=== PATIENT | male | born 1965 | race Caucasian/White ===

== ENCOUNTER 2022-09-30 14:53 | Emergency (ER) | payer OTHER, SELFPAY ==
--- NOTE | 2022-09-30 14:55 | ECG_ITS ---
Test Reason : elctricution Blood Pressure : / mmHG Vent. Rate : 057 BPM Atrial Rate : 057 BPM P-R Int : 188 ms QRS Dur : 090 ms QT Int : 440 ms P-R-T Axes : 043 028 030 degrees QTc Int : 428 ms Sinus bradycardia Otherwise normal ECG No previous ECGs available Referred By: Generic ED Physician Electronically Signed By:CJ AHMADI MD
--- NOTE | 2022-09-30 15:22 | ED_ITS ---
HPI - General Adult General Chief complaint: General Medical <CHAD Grove - Last Filed: 09/30/22 15:25> Stated complaint: electrication <CHAD Grove - Last Filed: 09/30/22 15:25> Time Seen by Provider: 09/30/22 20:46 <CHAD Grove - Last Filed: 09/30/22 15:25> Source: patient <Kelley Love NP - Last Filed: 10/01/22 00:54> Mode of arrival: ambulatory <Kelley Love NP - Last Filed: 10/01/22 00:54> Limitations: no limitations <CHELE Carvalho Last Filed: 10/01/22 00:54> History of Present Illness HPI narrative: This is a 56-year-old male with history of hypertension, BPH, hyperlipidemia who presents with complaints of logical shock which occurred at 14:00 while working. 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 He was flipping a meter seal with his left hand when he touched the live wire. He believes it was over 1000 voltage. He felt immediate shock in his left index finger and felt up to his forearm. He feels well now. He denies any pain, numbness, tingling of extremities. No chest pain, palpitations, shortness of breath. <Kelley Love NP - Last Filed: 10/01/22 00:54> Related Data Allergies/adverse reactions: Allergies Allergy/AdvReac Type Severity Reaction Status Date / Time No Known Allergies Allergy Unverified 05/08/20 14:44 <CHAD Grove - Last Filed: 09/30/22 15:25> Review of Systems Review of Systems: Yes all other systems are reviewed and are negative <CHELE Carvalho Last Filed: 10/01/22 00:54> Constitutional: Constitutional: Reports no additional constitutional complaints, Denies body ache(s), Denies chills, Denies fever(s), Denies head ache(s) and Denies weakness <CHELE Carvalho Last Filed: 10/01/22 00:54> Eyes: Eyes: Reports no additional eye complaints and Denies change in vision <Kelley Love HEALTHCARE APPLICATIONS ANALYST - Last Filed: 10/01/22 00:54> ENT: Reports system reviewed and no additional complaints, except as documented, Denies dizziness, Denies headache(s), Denies nasal congestion, Denies nasal discharge and Denies neck pain <Kelley Love HEALTHCARE APPLICATIONS ANALYST - Last Filed: 10/01/22 00:54> Cardiovascular: Cardiovascular: Reports no additional cardiovascular complaints, Denies chest pain, Denies leg edema and Denies dyspnea <Kelley Love HEALTHCARE APPLICATIONS ANALYST - Last Filed: 10/01/22 00:54> Respiratory: Respiratory: Reports no additional respiratory complaints, Denies cough and Denies dyspnea <Kelley Love HEALTHCARE APPLICATIONS ANALYST - Last Filed: 10/01/22 00:54> Gastrointestinal: Gastrointestinal: Reports no additional gastrointestinal complaints, Denies abdominal pain, Denies diarrhea, Denies nausea and Denies vomiting <Kelley Love HEALTHCARE APPLICATIONS ANALYST - Last Filed: 10/01/22 00:54> Genitourinary: Genitourinary: Denies urinary incontinence <Kelley Love HEALTHCARE APPLICATIONS ANALYST - Last Filed: 10/01/22 00:54> Musculoskeletal: Musculoskeletal: Reports no additional musculoskeletal complaints, Denies back pain, Denies arthralgias, Denies joint swelling, Denies neck pain, Denies numbness and Denies tingling <Kelley Love HEALTHCARE APPLICATIONS ANALYST - Last Filed: 10/01/22 00:54> Integumentary/Breasts: Skin/Breast: Reports system reviewed and no additional complaints, except as docu and Denies rash <Kelley Love HEALTHCARE APPLICATIONS ANALYST - Last Filed: 10/01/22 00:54> Neurologic: Reports system reviewed and no additional complaints, except as documented, Denies dizziness, Denies headache(s), Denies numbness, Denies tingling and Denies weakness <Kelley Love HEALTHCARE APPLICATIONS ANALYST - Last Filed: 10/01/22 00:54> PMFSH Past Medical History Attestation statement: The following information was validated with the patient. <Kelley pinto NP - Last Filed: 10/01/22 00:54> Source: old records reviewed and nursing notes reviewed <Kelley Love NP - Last Filed: 10/01/22 00:54> Social History Social History: Social History Advance Directives: No Advance Directives Information Provided: No <CHAD Grove - Last Filed: 09/30/22 15:25> Physical Exam ED Vital Signs: Vital Signs - 24 hr 09/30/22 15:23 09/30/22 20:32 09/30/22 21:33 Temperature 97.5 F 97.8 F 97.7 F Pulse Rate 60 52 50 Respiratory Rate 18 18 16 Blood Pressure 173/76 H 164/58 H 171/84 H Pulse Oximetry 97 98 97 Oxygen Delivery Method Room Air Room Air Room Air BMI result Body Mass Index 40.8 <CHAD Grove Last Filed: 09/30/22 15:25> Vital Signs - 24 hr 09/30/22 15:23 09/30/22 20:32 09/30/22 21:33 Temperature 97.5 F 97.8 F 97.7 F Pulse Rate 60 52 50 Respiratory Rate 18 18 16 Blood Pressure 173/76 H 164/58 H 171/84 H Pulse Oximetry 97 98 97 Oxygen Delivery Method Room Air Room Air Room Air BMI result Body Mass Index 40.8 <Kelley Love NP - Last Filed: 10/01/22 00:54> Const General: cooperative, healthy appearing and comfortable <Kelley Love NP - Last Filed: 10/01/22 00:54> Orientation/consciousness: patient oriented x3 <Kelley Love NP - Last Filed: 10/01/22 00:54> Limitations: no limitations <Kelley Love NP - Last Filed: 10/01/22 00:54> HENMT Head: Yes normal to inspection <Kelley Love NP - Last Filed: 10/01/22 00:54> Ears: hearing grossly normal bilaterally <Kelley Love NP - Last Filed: 10/01/22 00:54> Eyes General: appearance normal, both eyes and all related structures <CHELE Carvalho Last Filed: 10/01/22 00:54> Pupils: Equal, round and reactive pupils present <Kelley Love HEALTHCARE APPLICATIONS ANALYST - Last Filed: 10/01/22 00:54> Neck Neck: Yes normal visual inspection, Yes full ROM and Yes no lymphadenopathy <Kelley Love HEALTHCARE APPLICATIONS ANALYST - Last Filed: 10/01/22 00:54> Chest Chest palpation & inspection: normal inspection of the chest <Kelley Love HEALTHCARE APPLICATIONS ANALYST - Last Filed: 10/01/22 00:54> Resp Effort & Inspection: normal respiratory effort <Kelley Love HEALTHCARE APPLICATIONS ANALYST - Last Filed: 10/01/22 00:5 4> Auscultation: clear to auscultation bilaterally <Kelley Love HEALTHCARE APPLICATIONS ANALYST - Last Filed: 10/01/22 00:54> Cardio Rate: regular rate <Kelley Love HEALTHCARE APPLICATIONS ANALYST - Last Filed: 10/01/22 00:54> Rhythm: regular rhythm <Kelley Love HEALTHCARE APPLICATIONS ANALYST - Last Filed: 10/01/22 00:54> Peripheral pulses: Peripheral pulses 2+ throughout <Kelley Love HEALTHCARE APPLICATIONS ANALYST - Last Filed: 10/01/22 00:54> GI Inspection: Yes normal to inspection <Kelley Love HEALTHCARE APPLICATIONS ANALYST - Last Filed: 10/01/22 00:54> Palpation (GI): Soft to palpation and nontender <Kelley Love HEALTHCARE APPLICATIONS ANALYST - Last Filed: 10/01/22 00:54> General: Yes no CVA tenderness <Kelley Love HEALTHCARE APPLICATIONS ANALYST - Last Filed: 10/01/22 00:54> Back/Spine/Pelvis Back: no CVA tenderness <Kelley Love HEALTHCARE APPLICATIONS ANALYST - Last Filed: 10/01/22 00:54> Thoracic/Lumbar Spine: thoracic and lumbar spine normal to inspection <Kelley Love HEALTHCARE APPLICATIONS ANALYST - Last Filed: 10/01/22 00:54> Skin General skin exam: no rashes or lesions noted <Kelley Love HEALTHCARE APPLICATIONS ANALYST - Last Filed: 10/01/22 00:54> Neuro General: patient oriented x3 and moves all extremities <Kelley Love NP - Last Filed: 10/01/22 00:54> Cranial nerves: Yes CN's II-XII intact bilaterally, Yes Equal, round and reactive pupils present, Yes Bilaterally intact EOM present, Yes Nystagmus not present and Yes Normal facial strength present <Kelley Love NP - Last Filed: 10/01/22 00:54> Cognition (Neuro): normal cognition <Kelley Love NP - Last Filed: 10/01/22 00:54> Gait exam (Neuro): Normal gait present <Kelley Love NP - Last Filed: 10/01/22 00:54> Motor exam (neuro): 5/5 motor strength present throughout <Kelley Love NP - Last Filed: 10/01/22 00:54> Extrem Other: Left index finger normal in appearance <Kelley Love NP - Last Filed: 10/01/22 00:54> General: Yes normal to inspection, Yes no pedal edema and Yes no calf tenderness <Kelley Love NP - Last Filed: 10/01/22 00:54> Course Course Course Narrative: This is an RME: Additional HPI, ROS, PE not included below will be deferred to primary provider. 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 Patient denies chest pain, shortness of breath, tachycardia, headache, vision changes, dizziness, numbness and tingling. Physical examination benign. Plan at this time basic labs, CPK, troponin, EKG. <CHAD Grove - Last Filed: 09/30/22 15:25> Reevaluation(s) Reevaluation #1: Labs unremarkable. Patient monitored for greater than 5 hours with no events. Patient has no symptoms. Recommend patient follow-up with occupational health. Reviewed worrisome signs and symptoms of when to return to the emergency room. Comfortable plan for discharge home. <Kelley Lvoe NP - Last Filed: 10/01/22 00:54> Medical Decision Making Medical Decision Making MDM Narrative: 56-year-old male here after suffering electrical shock to the left upper extremity at 14:00 today with no complaints. No focal findings on exam. No burn. Normal neuro exam. Will obtain labs, EKG <Kelley Love NP - Last Filed: 10/01/22 00:54> Differential Diagnosis Differential Diagnoses: The differential diagnosis associated with the presentation includes <Kelley Love NP - Last Filed: 10/01/22 00:54> Burn <Kelley Love NP - Last Filed: 10/01/22 00:54> Lab Data [facility] Lab Attestation statement: I reviewed the patient's lab results. <Kelley Love NP - Last Filed: 10/01/22 00:54> Result Diagrams: 09/30/22 15:18 09/30/22 15:18 <CHAD Grove - Last Filed: 09/30/22 15:25> Labs: Lab Results 09/30/22 09/30/22 09/30/22 Range/Units 15:18 15:18 15:18 WBC 4.8 (4.8-10.8) X10*3/uL RBC 5.36 (4.60-5.80) X10*6/uL Hgb 14.8 (14.0-18.0) g/dl Hct 44.3 (42.0-52.0) % MCV 82.6 (80.0-98.0) fL MCH 27.6 (27.0-33.0) pg MCHC 33.4 (31.0-36.0) g/dl RDW 12.9 (11.0-16.0) % Plt Count 267 (160-400) X10*3/uL MPV 10.0 (9.4-12.4) fL Immature Gran % (Auto) 0.2 (0.0-0.4) % Neut % (Auto) 45.8 (45-73) % Lymph % (Auto) 42.8 H (20-40) % [place] % (Auto) 9.1 (2-11) % Eos % (Auto) 1.5 (0-4) % Baso % (Auto) 0.6 (0-2) % Lymph # (Auto) 2.1 (1.2-4.9) X10*3/uL [place] # (Auto) 0.4 (0.1-1.2) X10*3/uL Eos # (Auto) 0.1 (0.0-0.4) X10*3/uL Baso # (Auto) 0.0 (0.0-0.2) X10*3/uL Abs Immat Gran (auto) 0.01 (0.00-0.03) X10*3/uL Absolute Neuts (auto) 2.2 (2.0-8.3) x10*3/uL Absolute Nucleated RBC 0.000 (0.0-0.012) X10*3/uL Nucleated RBC % (auto) 0.0 (0.0-0.2) /100WBC Sodium 141 (135-145) mmol/L Potassium 3.9 (3.3-5.1) mmol/L Chloride 107 (96-108) mmol/L Carbon Dioxide 25 (22-29) mmol/L Anion Gap 13 (12-20) BUN 17 H (9-16) mg/dL Creatinine 0.86 (0.5-1.4) mg/dL Estim Creat Clear Calc 137.7 Estimated GFR > 60 Random Glucose 148 H (60-115) mg/dL Calcium 9.1 (8.4-10.2) mg/dL Total Creatine Kinase 199 H (38-174) U/L Troponin I High Sens < 3.5 (<3.5-35.0) ng/L 09/30/22 Range/Units 21:41 WBC (4.8-10.8) X10*3/uL RBC (4.60-5.80) X10*6/uL Hgb (14.0-18.0) g/dl Hct (42.0-52.0) % MCV (80.0-98.0) fL MCH (27.0-33.0) pg MCHC (31.0-36.0) g/dl RDW (11.0-16.0) % Plt Count (160-400) X10*3/uL MPV (9.4-12.4) fL Immature Gran % (Auto) (0.0-0.4) % Neut % (Auto) (45-73) % Lymph % (Auto) (20-40) % [place] % (Auto) (2-11) % Eos % (Auto) (0-4) % Baso % (Auto) (0-2) % Lymph # (Auto) (1.2-4.9) X10*3/uL [place] # (Auto) (0.1-1.2) X10*3/uL Eos # (Auto) (0.0-0.4) X10*3/uL Baso # (Auto) (0.0-0.2) X10*3/uL Abs Immat Gran (auto) (0.00-0.03) X10*3/uL Absolute Neuts (auto) (2.0-8.3) x10*3/uL Absolute Nucleated RBC (0.0-0.012) X10*3/uL Nucleated RBC % (auto) (0.0-0.2) /100WBC Sodium 141 (135-145) mmol/L Potassium 4.0 (3.3-5.1) mmol/L Chloride 107 (96-108) mmol/L Carbon Dioxide 23 (22-29) mmol/L Anion Gap 15 (12-20) BUN 17 H (9-16) mg/dL Creatinine 0.76 (0.5-1.4) mg/dL Estim Creat Clear Calc 155.8 Estimated GFR > 60 Random Glucose 112 (60-115) mg/dL Calcium 9.2 (8.4-10.2) mg/dL Total Creatine Kinase 152 (38-174) U/L Troponin I High Sens (<3.5-35.0) ng/L <CHAD Grove - Last Filed: 09/30/22 15:25> Lab Results 09/30/22 09/30/22 09/30/22 Range/Units 15:18 15:18 15:18 WBC 4.8 (4.8-10.8) X10*3/uL RBC 5.36 (4.60-5.80) X10*6/uL Hgb 14.8 (14.0-18.0) g/dl Hct 44.3 (42.0-52.0) % MCV 82.6 (80.0-98.0) fL MCH 27.6 (27.0-33.0) pg MCHC 33.4 (31.0-36.0) g/dl RDW 12.9 (11.0-16.0) % Plt Count 267 (160-400) X10*3/uL MPV 10.0 (9.4-12.4) fL Immature Gran % (Auto) 0.2 (0.0-0.4) % Neut % (Auto) 45.8 (45-73) % Lymph % (Auto) 42.8 H (20-40) % [place] % (Auto) 9.1 (2-11) % Eos % (Auto) 1.5 (0-4) % Baso % (Auto) 0.6 (0-2) % Lymph # (Auto) 2.1 (1.2-4.9) X10*3/uL [place] # (Auto) 0.4 (0.1-1.2) X10*3/uL Eos # (Auto) 0.1 (0.0-0.4) X10*3/uL Baso # (Auto) 0.0 (0.0-0.2) X10*3/uL Abs Immat Gran (auto) 0.01 (0.00-0.03) X10*3/uL Absolute Neuts (auto) 2.2 (2.0-8.3) x10*3/uL Absolute Nucleated RBC 0.000 (0.0-0.012) X10*3/uL Nucleated RBC % (auto) 0.0 (0.0-0.2) /100WBC Sodium 141 (135-145) mmol/L Potassium 3.9 (3.3-5.1) mmol/L Chloride 107 (96-108) mmol/L Carbon Dioxide 25 (22-29) mmol/L Anion Gap 13 (12-20) BUN 17 H (9-16) mg/dL Creatinine 0.86 (0.5-1.4) mg/dL Estim Creat Clear Calc 137.7 Estimated GFR > 60 Random Glucose 148 H (60-115) mg/dL Calcium 9.1 (8.4-10.2) mg/dL Total Creatine Kinase 199 H (38-174) U/L Troponin I High Sens < 3.5 (<3.5-35.0) ng/L 09/30/22 Range/Units 21:41 WBC (4.8-10.8) X10*3/uL RBC (4.60-5.80) X10*6/uL Hgb (14.0-18.0) g/dl Hct (42.0-52.0) % MCV (80.0-98.0) fL MCH (27.0-33.0) pg MCHC (31.0-36.0) g/dl RDW (11.0-16.0) % Plt Count (160-400) X10*3/uL MPV (9.4-12.4) fL Immature Gran % (Auto) (0.0-0.4) % Neut % (Auto) (45-73) % Lymph % (Auto) (20-40) % [place] % (Auto) (2-11) % Eos % (Auto) (0-4) % Baso % (Auto) (0-2) % Lymph # (Auto) (1.2-4.9) X10*3/uL [place] # (Auto) (0.1-1.2) X10*3/uL Eos # (Auto) (0.0-0.4) X10*3/uL Baso # (Auto) (0.0-0.2) X10*3/uL Abs Immat Gran (auto) (0.00-0.03) X10*3/uL Absolute Neuts (auto) (2.0-8.3) x10*3/uL Absolute Nucleated RBC (0.0-0.012) X10*3/uL Nucleated RBC % (auto) (0.0-0.2) /100WBC Sodium 141 (135-145) mmol/L Potassium 4.0 (3.3-5.1) mmol/L Chloride 107 (96-108) mmol/L Carbon Dioxide 23 (22-29) mmol/L Anion Gap 15 (12-20) BUN 17 H (9-16) mg/dL Creatinine 0.76 (0.5-1.4) mg/dL Estim Creat Clear Calc 155.8 Estimated GFR > 60 Random Glucose 112 (60-115) mg/dL Calcium 9.2 (8.4-10.2) mg/dL Total Creatine Kinase 152 (38-174) U/L Troponin I High Sens (<3.5-35.0) ng/L <Kelley Love NP - Last Filed: 10/01/22 00:54> Independent Interpretation I performed an independent interpretation of an: EKG <Kelley Love NP - Last Filed: 10/01/22 00:54> Interpretation: Sinus bradycardia with a rate of 57, normal OR, normal QRS, normal QT <Kelley Love NP - Last Filed: 10/01/22 00:54> Discharge Plan Discharge Clinical Impression: Electric shock <CHAD Grove - Last Filed: 09/30/22 15:25> Patient Disposition: Home, Self-Care <CHAD Grove - Last Filed: 09/30/22 15:25> Instructions: Electrical Heath in Adults (ED) <CHAD Grove - Last Filed: 09/30/22 15:25> Additional Instructions: Follow-up with work connection [phone] Return for worsening symptoms <CHAD Grove - Last Filed: 09/30/22 15:25> Referrals: Krystal Mcintosh NP [Primary Care Provider] - 1 week <CHAD Grove - Last Filed: 09/30/22 15:25> Interventions: ED Discharge Assessment Last Done: 09/30/22 22:41 <CHAD Grove - Last Filed: 09/30/22 15:25> Discharge Date/Time: 09/30/22 22:42 <CHAD Grove - Last Filed: 09/30/22 15:25>
[2022-09-30 15:23] VITALS: BP 173/76; PULSE 60; RESP 18; TEMP 36.4; O2SAT 97; BMI 40.8
[2022-09-30 15:23] LABS: MANUAL DIFF FLAG NO
[2022-09-30 15:27] LABS: Basophils Percent Auto 0.6 % (0-2); Eosinophils Absolute Auto 0.1 X10*3/uL (0.0-0.4); Eosinophils Percent Auto 1.5 % (0-4); Hematocrit 44.3 % (42.0-52.0); Hemoglobin 14.8 g/dl (14.0-18.0); Imm Gran Abs Auto 0.01 X10*3/uL (0.00-0.03); Imm Gran Pct Auto 0.2 % (0.0-0.4); Lymphocytes Absolute Auto 2.1 X10*3/uL (1.2-4.9); Lymphocytes Percent Auto 42.8 % (20-40); Mean Corpuscular HGB Conc 33.4 g/dl (31.0-36.0); Mean Corpuscular Hemoglobin 27.6 pg (27.0-33.0); Mean Corpuscular Volume 82.6 fL (80.0-98.0); Monocytes Absolute Auto 0.4 X10*3/uL (0.1-1.2); Monocytes Percent Auto 9.1 % (2-11); Neutrophils Absolute Auto 2.2 x10*3/uL (2.0-8.3); Neutrophils Percent Auto 45.8 % (45-73); Platelet Count 267 X10*3/uL (160-400); Red Blood Count 5.36 X10*6/uL (4.60-5.80); Red Cell Distribution Width 12.9 % (11.0-16.0); White Blood Count 4.8 X10*3/uL (4.8-10.8)
[2022-09-30 16:06] LABS: Anion Gap 13 (12-20); Blood Urea Nitrogen 17 mg/dL (9-16); Calcium 9.1 mg/dL (8.4-10.2); Carbon Dioxide 25 mmol/L (22-29); Chloride 107 mmol/L (96-108); Creatinine Clr Calc Pharmacy 137.7; Estimated Glomerular Filt Rate > 60; Glucose Random 148 mg/dL (60-115); Potassium 3.9 mmol/L (3.3-5.1); Sodium 141 mmol/L (135-145)
[2022-09-30 16:14] LABS: Troponin-I High Sensitivity < 3.5 ng/L (<3.5-35.0)
[2022-09-30 20:32] VITALS: BP 164/58; PULSE 52; RESP 18; TEMP 36.6; O2SAT 98
[2022-09-30 21:33] VITALS: BP 171/84; PULSE 50; RESP 16; TEMP 36.5; O2SAT 97
[2022-09-30 22:12] LABS: Anion Gap 15 (12-20); Blood Urea Nitrogen 17 mg/dL (9-16); Calcium 9.2 mg/dL (8.4-10.2); Carbon Dioxide 23 mmol/L (22-29); Chloride 107 mmol/L (96-108); Creatinine Clr Calc Pharmacy 155.8; Estimated Glomerular Filt Rate > 60; Glucose Random 112 mg/dL (60-115); Sodium 141 mmol/L (135-145)
== END 2022-09-30 22:42 | disposition home or self-care (01) ==
PROVIDERS: Nurse Practitioner Family; Emergency Provider Emergency Medicine; PCP Nurse Practitioner Family
DX: T75.4XXA Electrocution, initial encounter (principal); W86.1XXA Exposure to industrial wiring, appliances and electrical machinery, initial encounter; Y93.89 Activity, other specified; Y92.9 Unspecified place or not applicable; Y99.0 Civilian activity done for income or pay
CPT/HCPCS: 36415; 80048; 82550; 84484; 85025; 93005; 99283; 99284